=== PATIENT | male | born 1935 | race Caucasian/White ===

== ENCOUNTER 2019-04-17 00:47 | Day surgery (SDC) | payer MEDICARE, SELFPAY ==
[2019-04-17] VITALS (16 sets, daily range): BP systolic 113–185; BP diastolic 52–89; PULSE 75–97; RESP 14–22; TEMP 36.9–37.2; O2SAT 93–100; BMI 26.8
[2019-04-17 09:11] LABS: Basophils Percent Auto 0.5 % (0.2-1.2); Eosinophils Absolute Auto 0.3 K/mm3 (0-0.3); Eosinophils Percent Auto 3.1 % (0-4.4); Hematocrit 37.1 % (42.0-52.0); Immature Granulocyte Absolute 0.01 K/mm3 (0.00-0.031); Immature Granulocyte Percent A 0.1 % (0-0.5); Lymphocytes Absolute Auto 0.98 K/mm3 (0.9-3.2); Mean Corpuscular HGB Conc 29.6 g/dl (32-36); Mean Corpuscular Hemoglobin 23.8 pg (26-34); Mean Corpuscular Volume 80.1 fl (80-100); Mean Platelet Volume 12.1 fl (7.4-10.4); Monocytes Absolute Auto 1.1 K/mm3 (0.1-0.6); Monocytes Percent Auto 13.6 % (2.6-8.5); Neutrophils Absolute Auto 5.8 K/mm3 (1.3-6.7); Neutrophils Percent Auto 70.7 % (45.5-73.1); Platelet Count Result 188 k/mm3 (150-375); Red Blood Count 4.63 M/mm3 (4.6-6.20); Red Cell Distribution Width 15.5 % (11.5-14.5); White Blood Count 8.2 K/mm3 (4.5-10.0)
[2019-04-17 09:22] LABS: Blood Urea Nitrogen 20 mg/dL (9-20); Calcium 9.3 mg/dL (8.4-10.2); Carbon Dioxide 31 mmol/L (22-30); Chloride 100 mmol/L (98-107); Estimated Glomerular Filt Rate > 60; Glucose 101 mg/dL (75-110); Potassium 4.3 mmol/L (3.4-5.0); Sodium 136 mmol/L (137-145)
[2019-04-17 09:24] LABS: Platelet Estimate Adequate (Adequate); Poikilocytosis 1+ (NORMAL)
[2019-04-17 09:25] LABS: Ovalocytes 1+ (NORMAL)
--- NOTE | 2019-04-17 09:49 | WPDMODSED ---
Moderate Sedation Note-Pt Data Patient Data Diagnosis: Symptomatic aortic stenosis Present Complaint: Exertional dyspnea Procedure to be performed/Plan: Right and left heart catheterization Allergies Allergy/AdvReac Type Severity Reaction Status Date / Time pravastatin Allergy Intermediate leg cramps Verified 02/25/19 11:42 Home Medications Medication Instructions Recorded Confirmed Type aspirin 81 mg tablet,delayed 81 mg PO DAILY 02/25/19 04/17/19 History release atorvastatin 20 mg tablet 20 mg PO DAILY 02/25/19 04/17/19 History finasteride 5 mg tablet 5 mg PO DAILY 02/25/19 04/17/19 History fluorometholone 0.1 % eye 1 drop EACH EYE Q6H 02/25/19 04/17/19 History drops,suspension losartan 50 mg tablet 50 mg PO DAILY 02/25/19 04/17/19 History meloxicam 15 mg tablet 15 mg PO DAILY 02/25/19 04/17/19 History triamcinolone acetonide 0.1 % 1 applic TOPICAL BID #15 gm 02/26/19 04/17/19 Rx topical cream Current Medications: Active Medications Sodium Chloride (Normal Saline Iv) 500 mls @ 100 mls/hr IV CONT .Q5H CLARI Sedation/Anesthesia: No previous sedation/anesthesia problems (including family history). [facility] Past Medical History Medical History (Updated 02/25/19 @ 12:45 by Christophe Hope DO) Aortic stenosis Healthcare maintenance Hyperlipidemia Hypertension Nodular prostate with urinary obstruction Osteoarthritis Surgical History Surgical History (Updated 02/25/19 @ 12:13 by Tanya Gómez) History of appendectomy 1949's History of hip replacement, total Right Hip. 10-26-2018 Social History Social History (Updated 02/25/19 @ 11:45 by Tanya Gómez) Smoking status: Former smoker Mod Sed Physical Exam Physical Exam Pre Procedural Exam: Normal: Neck, Throat, Airway, Lungs, Heart Size, Heart Rate, Heart Rhythm, Neuro Exam and Extremities and Variation: Appearance (Elderly white male appears to be comfortable in bed) Hours since solid foods: 12 Hours since liquid intake: 12 Internal Medicine - PN: Obj Da Vital Signs Vital Signs: Vital Signs - 24 hr 04/17/19 09:25 Temperature 36.9 C Pulse Rate 88 Respiratory Rate 14 Blood Pressure 185/86 H Pulse Oximetry 100 Meds/Results Medications: Active Medications Generic Name Dose Route Start Last Admin Trade Name Freq PRN Reason Stop Dose Admin Sodium Chloride 500 mls @ 100 mls/hr 04/17/19 06:00 Normal Saline Iv IV CONT .Q5H CLARI Labs CBC & Chem 7: 04/17/19 09:05 04/17/19 09:05 Labs: Laboratory Results - last 24 hr 04/17/19 04/17/19 09:05 09:05 WBC 8.2 RBC 4.63 Hgb 11.0 L Hct 37.1 L MCV 80.1 MCH 23.8 L MCHC 29.6 L RDW 15.5 H Plt Count 188 MPV 12.1 H Immature Gran % (Auto) 0.1 Neut % (Auto) 70.7 Lymph % (Auto) 12.0 L Ocean % (Auto) 13.6 H Eos % (Auto) 3.1 Baso % (Auto) 0.5 Lymph # (Auto) 0.98 Ocean # (Auto) 1.1 H Eos # (Auto) 0.3 Baso # (Auto) 0.0 Abs Immat Gran (auto) 0.01 Absolute Neuts (auto) 5.8 Absolute Nucleated RBC 0.0 Nucleated RBC % 0.0 Platelet Estimate Adequate Poikilocytosis 1+ Ovalocytes 1+ Sodium 136 L Potassium 4.3 Chloride 100 Carbon Dioxide 31 H BUN 20 Creatinine 0.90 Estim Creat Clear Calc Not Reportable Estimated GFR > 60 Glucose 101 Calcium 9.3 ASA Classification/Sedation ASA Classification/Sedation ASA Class: II Emergent: No Risks: Risks, benefits and alternatives explained and patient/family accepted plan for sedation. Patient re-evaluated immediately prior to sedation.
--- NOTE | 2019-04-17 10:54 | WPDCARDPROC ---
Cardiac Cath Procedure Note Date of procedure:: 04/17/19 Performing physician:: Arden Bird MD Indication:: Elderly gentleman with well known aortic valve stenosis now symptomatic with echocardiography demonstrating severe aortic valve stenosis. Patient admitted as an outpatient for right and left heart catheterization in anticipation of AVR Brief clinical history:: as above Procedure Procedure performed:: right and left heart catheterization Sedation/Medication given:: fentanyl 50 mg Versed 2 mg case start time 10:20 a.m. case end time 10:48 a.m. [email or web address] provided by Robert Posada RN, trained observer Access site:: right femoral artery, right femoral vein Estimated blood loss:: 20 cc Procedure note:: patient was brought to the cardiac catheterization lab in the postabsorptive state the right femoral triangle was prepared in the usual fashion. Anesthesia was provided with 1% lidocaine infiltrated locally. Using the modified Seldinger technique a 6 Syriac sheath was placed into the femoral artery and a 7 Syriac sheath in femoral vein. Right heart catheterization was then carried out using a balloon tip [place]-Duc catheter to demonstrate right-sided hemodynamics and perform thermodilution cardiac output measurements. He was placed on 2 L of nasal cannula oxygen so I did not collected Willa cardiac output. Following this the [place]-Duc catheter was removed. a 6 Syriac double-lumen pigtail catheter was then advanced into the arterial sheath and up to the aortic root. A both lumens were flushed and simultaneous pressures were documented in both lumens and found to be superimposable. The straight wire was then used in the distal lumen to probe the stenotic aortic valve with the left ventricle was entered. The catheter a distal lumen was then advanced into the LV the lumen was then flushed again and simultaneous LV and aortic pressures were documented. Aortic valve area was calculated and aortic valve gradient. left ventriculography was then done in the SLAUGHTER projection after which a pullback was recorded across the stenotic aortic valve. Following this the left coronary artery was engaged and injected in multiple projections using a 5 Syriac FL4 catheter the right coronary was injected using a 5 Syriac JR4 catheter. The procedure was then terminated the patient was taken to the holding area for manual sheath removal. He had no procedural complications and left the director of cath lab with no evidence of a groin hematoma. Findings:: Hemodynamics: Right atrial pressure 9 mmHg right ventricle 50 over 5 end-diastolic 13. Pulmonary artery pressure 52 over 21 pulmonary capillary wedge pressure 23. Central aortic pressure 1 68/74 left ventricle 212/ 0, end-diastolic 15. Thermodilution cardiac output is 5.83 liters/minute giving an index of 2.82. Aortic valve area calculates to be 0.82 cm2 mean gradient 43.36 mmHg. The left ventricle is normal in size and exhibits concentric hypertrophy all segments contract well the global ejection fraction is visually estimated to be 60% there are no regional wall motion abnormalities. Left coronary artery is modestly calcified. The left main is large caliber vessel which has minimal distal plaquing from the distal left main into the proximal LAD this represents about 20% luminal stenosis and is not flow limiting in any projection. The LAD is a [id number] caliber vessel extending down to around the apex. There are mild luminal irregularities in the LAD and possibly 40% mid stenosis is identified. No flow limiting disease the circumflex is a moderate caliber artery giving rise to the marginal branches and a posterior branch the circumflex has modest luminal irregularities scattered throughout its course but no flow-limiting disease is identified right coronary artery is large caliber and dominant to the posterior circulation there are mild scattered luminal irregularities in the mid trunk of the RCA but n
[2019-04-17] MEDS: hydrALAZINE HCL 20 MG/ML VIAL 10 MG IV PUSH (12:50)
[2019-04-17] MEDS: ACETAMINOPHEN 325 MG TABLET 650 MG PO (15:46)
--- NOTE | 2019-04-17 19:47 | SUR.PHASEII ---
04/17/19:1855:IV REMOVED FROM RT FOREARM, SHEATH INTACT.NO BLEEDING OR HEMATOMA NOTED. DRESSING APPLIED.
--- NOTE | 2019-04-17 19:49 | SUR.PHASEII ---
04/17/19: 1910: PATIENT DRESSED SELF WITH MODERATE ASSIST FROM SPOUSE. RT GROIN SITE IS CLEAN AND DRY.PULSES ARE PALPATED STRONG.
--- NOTE | 2019-04-17 19:50 | SUR.PHASEII ---
04/17/19:1920:DETAILED DISCHARGE INSTRUCTIONS GIVEN TO PATIENT. PATIENT VERBALIZED AN UNDERSTANDING OF THESE INSTRUCTION.
--- NOTE | 2019-04-17 19:51 | SUR.PHASEII ---
04/17/19:1925:PATIENT DISCHARGED TO HOME VIA WHEELCHAIR.
== END 2019-04-17 19:25 | disposition home or self-care (01) ==
PROVIDERS: Specialist; Visit Provider Internal Medicine Cardiovascular Disease
PROC: 4A023N8 Measurement of Cardiac Sampling and Pressure, Bilateral, Percutaneous Approach (ICD-10-PCS; CPT 93453; principal; 2019-04-17 10:00)
DX: Z01.810 Encounter for preprocedural cardiovascular examination (principal); I35.0 Nonrheumatic aortic (valve) stenosis; I25.10 Atherosclerotic heart disease of native coronary artery without angina pectoris; R06.09 Other forms of dyspnea; I10 Essential (primary) hypertension; E78.5 Hyperlipidemia, unspecified; N40.1 Benign prostatic hyperplasia with lower urinary tract symptoms; N13.8 Other obstructive and reflux uropathy; M19.90 Unspecified osteoarthritis, unspecified site; Z79.82 Long term (current) use of aspirin; Z87.891 Personal history of nicotine dependence
CPT/HCPCS: 36415; 80048; 85025; 93460; A9270; C1887; C1894; J0360; J1644; J2250; J3010; J7040

== ENCOUNTER 2019-10-03 12:46 | Outpatient (RCR) | payer MEDICARE, SELFPAY ==
[2019-10-03 15:20] VITALS: BP 149/70; PULSE 86; RESP 16; O2SAT 99; BMI 27.6
[2019-10-03 15:29] VITALS: PULSE 86
== END 2020-01-01 23:59 | disposition home or self-care (01) ==
PROVIDERS: PCP Family Medicine; Visit Provider Internal Medicine Cardiovascular Disease
DX: Z95.2 Presence of prosthetic heart valve (principal)
CPT/HCPCS: 93798

== ENCOUNTER 2020-01-08 11:31 | Outpatient (CLI) | payer MEDICARE, SELFPAY ==
[2020-01-08 12:22] LABS: Potassium 4.6 mmol/L (3.4-5.0)
[2020-01-08 12:29] LABS: Anion Gap 8 mmol/L (8-16); Blood Urea Nitrogen 14 mg/dL (9-20); Calcium 9.1 mg/dL (8.4-10.2); Carbon Dioxide 30 mmol/L (22-30); Chloride 101 mmol/L (98-107); Estimated Glomerular Filt Rate > 60; Glucose 101 mg/dL (75-110); Sodium 139 mmol/L (137-145)
== END 2020-01-08 11:32 | disposition home or self-care (01) ==
LOC: ANHLAB 11:33
PROVIDERS: PCP Family Medicine; Visit Provider Internal Medicine Cardiovascular Disease
DX: I10 Essential (primary) hypertension (principal)
CPT/HCPCS: 36415; 80048

== ENCOUNTER 2020-02-11 08:35 | Outpatient (CLI) | payer MEDICARE, SELFPAY | END 2020-02-11 08:36 | disposition home or self-care (01) | LOC: CHSLAB 08:40 | PROVIDERS: PCP Family Medicine; Visit Provider Specialist | DX: D36.10 Benign neoplasm of peripheral nerves and autonomic nervous system, unspecified (principal) | CPT/HCPCS: 88305; 88342 ==

== ENCOUNTER 2020-05-08 11:52 | Outpatient (CLI) | payer MEDICARE, SELFPAY ==
[2020-05-08 12:12] LABS: Basophils Absolute Auto 0.1 K/mm3 (0.0-0.1); Basophils Percent Auto 0.9 % (0.2-1.2); Eosinophils Absolute Auto 0.1 K/mm3 (0-0.3); Eosinophils Percent Auto 1.6 % (0-4.4); Hematocrit 32.9 % (42.0-52.0); Hemoglobin 9.8 g/dL (14.0-18.0); Immature Granulocyte Absolute 0.01 K/mm3 (0.00-0.031); Immature Granulocyte Percent A 0.2 % (0-0.5); Immature Platelet Fraction Pct 9.2 % (0.9-11.2); Lymphocytes Absolute Auto 0.91 K/mm3 (0.9-3.2); Lymphocytes Percent Auto 15.9 % (18.3-44.2); Mean Corpuscular HGB Conc 29.8 g/dl (32-36); Mean Corpuscular Hemoglobin 21.9 pg (26-34); Mean Corpuscular Volume 73.6 fl (80-100); Mean Platelet Volume 11.7 fl (7.4-10.4); Monocytes Percent Auto 17.2 % (2.6-8.5); Neutrophils Absolute Auto 3.7 K/mm3 (1.3-6.7); Neutrophils Percent Auto 64.2 % (45.5-73.1); Platelet Count Result 166 k/mm3 (150-375); Red Blood Count 4.47 M/mm3 (4.6-6.20); Red Cell Distribution Width 16.4 % (11.5-14.5); White Blood Count 5.7 K/mm3 (4.5-10.0)
[2020-05-08 12:22] LABS: Anion Gap 5 mmol/L (8-16); Blood Urea Nitrogen 15 mg/dL (9-20); Calcium 9.2 mg/dL (8.4-10.2); Carbon Dioxide 30 mmol/L (22-30); Chloride 101 mmol/L (98-107); Estimated Glomerular Filt Rate > 60; Glucose 104 mg/dL (75-110); Potassium 4.5 mmol/L (3.4-5.0); Sodium 136 mmol/L (137-145)
[2020-05-08 12:39] LABS: Platelet Estimate Adequate (Adequate)
[2020-05-08 12:40] LABS: Ovalocytes 1+ (NORMAL); Poikilocytosis 1+ (NORMAL)
[2020-05-08 12:41] LABS: Anisocytosis 1+ (NORMAL); Macrocytosis 1+ (NORMAL)
== END 2020-05-08 11:53 | disposition home or self-care (01) ==
PROVIDERS: PCP Family Medicine; Visit Provider Internal Medicine Cardiovascular Disease
DX: I25.118 Atherosclerotic heart disease of native coronary artery with other forms of angina pectoris (principal)
CPT/HCPCS: 36415; 80048; 85025; 85055

== ENCOUNTER 2020-06-29 08:41 | Outpatient (CLI) | payer MEDICARE, SELFPAY ==
[2020-06-29 09:01] LABS: Hemoglobin A1C 5.2 % (<5.7)
[2020-06-29 09:09] LABS: Hematocrit 40.7 % (37.0-46.0); Hemoglobin 12.4 g/dL (12.4-15.3); Immature Platelet Fraction Pct 6.1 % (1.0-7.0); Mean Corpuscular HGB Conc 30.5 g/dL (32.0-36.0); Mean Corpuscular Hemoglobin 25.7 pg (27.0-31.0); Mean Corpuscular Volume 84.4 fL (78.0-102.0); Mean Platelet Volume 11.1 fl (8.7-11.0); Platelet Count Result 127 K/mm3 (150-420); Red Blood Count 4.82 M/mm3 (4.70-6.10); White Blood Count 7.3 K/mm3 (4.8-10.8)
[2020-06-29 10:05] LABS: Alanine Aminotransferase 24 U/L (16-63); Albumin Level 3.6 g/dL (3.4-5.0); Alkaline Phosphatase 92 U/L (46-116); Anion Gap 6 mmol/L (8-16); Aspartate Amino Transferase 14 U/L (15-37); Bilirubin,Total 0.4 mg/dL (0.00-1.00); Blood Urea Nitrogen 17 mg/dL (7-18); Calcium 9.2 mg/dL (8.5-10.1); Carbon Dioxide 32 mmol/L (21-32); Chloride 102 mmol/L (98-108); Estimated Glomerular Filt Rate > 60; Glucose 121 mg/dL (70-99); Osmolality Calculated 292 mOsm/kg (285-295); Potassium 4.3 mmol/L (3.5-5.1); Sodium 140 mmol/L (136-145); Total Protein 6.5 g/dL (6.4-8.2); Uric Acid 4.1 mg/dL (3.5-7.2)
== END 2020-06-29 08:42 | disposition home or self-care (01) ==
LOC: CHSLAB 08:44
PROVIDERS: PCP Family Medicine; Visit Provider Family Medicine
DX: M10.9 Gout, unspecified (principal); E11.9 Type 2 diabetes mellitus without complications
CPT/HCPCS: 36415; 80053; 83036; 84550; 85027; 85055

== ENCOUNTER 2020-07-07 13:30 | Outpatient (CLI) | payer MEDICARE, SELFPAY ==
--- NOTE | ~2020-07-07 | XR_ITS ---
XR foot RT standing 2V 07/07/2020 13:49 Indication: Right foot pain and redness Procedure: 2 views right foot Comparison: 07/07/2017 Findings: There is polyarticular osteoarthritis. There is soft tissue swelling at the metatarsophalan geal level dorsally on the lateral view. No acute fracture or traumatic malalignment. No erosive mauro ges are identified. Impression: 1: Moderate polyarticular osteoarthritis. Reviewed, dictated and finalized at location A. Impression: 1: Moderate polyarticular osteoarthritis.
== END 2020-07-07 13:31 | disposition home or self-care (01) ==
LOC: CHSIMG 13:32
PROVIDERS: PCP Family Medicine; Visit Provider Nurse Practitioner Family
DX: M79.671 Pain in right foot (principal)
CPT/HCPCS: 73620

== ENCOUNTER 2020-11-16 10:34 | Outpatient (CLI) | payer MEDICARE, SELFPAY ==
--- NOTE | ~2020-11-16 | CT_ITS ---
EXAMINATION: CT abdomen pelvis wo con DATE: 11/16/2020 10:48 INDICATION: Ventral hernia without obstruction or gangrene. TECHNIQUE: Computed tomography (CT) of the abdomen and pelvis was performed without intravenous contr ast. Automated exposure control and iterative reconstruction technique were employed. The dose-length product was 807.56 mGy-cm. COMPARISON: None. FINDINGS: The visualized portions of the lung bases demonstrate mild atelectasis. No pleural effusion . The heart size is normal. There are coronary artery calcifications. No pericardial effusion. The li steven, gallbladder, spleen, pancreas, adrenal glands, and kidneys are normal. There is no urolithiasis. There is a right inguinal hernia containing fat. There is diverticulosis of the colon without eviden ce of diverticulitis. There are no dilated loops of bowel. The appendix is not visualized. There are no pathologically enlarged lymph nodes. There is no free intraperitoneal fluid. There is a total righ t hip arthroplasty. There is severe lumbar spondylosis. Lumbar levoscoliosis is noted. IMPRESSION: 1. Right inguinal hernia containing fat. Reviewed, dictated and finalized at location A.
== END 2020-11-16 10:35 | disposition home or self-care (01) ==
LOC: CHSIMG 10:35
PROVIDERS: PCP Family Medicine; Visit Provider Family Medicine
DX: K43.9 Ventral hernia without obstruction or gangrene (principal); K40.90 Unilateral inguinal hernia, without obstruction or gangrene, not specified as recurrent
CPT/HCPCS: 74176

== ENCOUNTER 2020-12-18 07:52 | Outpatient (CLI) | payer MEDICARE, SELFPAY | END 2020-12-18 07:53 | disposition home or self-care (01) | LOC: ANHSURGERY 07:57 | PROVIDERS: PCP Family Medicine; Visit Provider Surgery | DX: K40.90 Unilateral inguinal hernia, without obstruction or gangrene, not specified as recurrent (principal); Z01.818 Encounter for other preprocedural examination | CPT/HCPCS: 36415; 86850; 86900; 86901 ==

== ENCOUNTER 2020-12-22 02:33 | Day surgery (SDC) | payer MEDICARE, SELFPAY ==
[2020-12-17 13:46] VITALS: BMI 27.5
--- NOTE | 2020-12-17 13:59 | PC.NURSE ---
Addendum entered by Ximena Amato RN 12/17/20 14:17: CONTINUE ASPIRIN [address] BOWERS'S STANDING ORDER, PT AWARE. Original Note: Report to the Outpatient Waiting Room, entrance under the green pavilion located off [facility], at time __8:00AM on date __12/22/20 . OR Time: ____10:00AM____. - You and your visitor will be asked a series of questions to screen for COVID 19 for your protection. - A mask is required within the hospital. - Only one visitor is allowed at this time. Patient visitors will be guided where to wait when not with patient. Preoperative COVID Testing Requirements: No COVID Test needed if: (proof is required; if not received patient will have Rapid Test prior to entry) - Patient has received COVID Vaccine at least 14 days prior to procedure date or - Patient has positive COVID test result within last 90 days of surgery date. COVID Test needed if above criteria is not met If not COVID vaccinated a COVID test must be conducted within 72 hours of surgery and patient is asked to isolate self from time of testing until procedure. You will go to the [facility] for your COVID testing. The [facility] is located at the corner of [address] [facility]. You will only be called if COVID results are positive and your surgeon may reschedule your elective surgery date. Patients may have clear liquids (water, carbonated beverages, clear teas, apple juice) until 3 hours prior to surgery with a maximum of 20 ounces. - No food from midnight until time of surgery - Infants may have breast milk until 4 hours before surgery, formula 6 hours prior to surgery. - Children will be allowed to drink immediately following surgery. If applicable, please bring a bottle or sippy cup to assist with drinking. Juice, water, soda, and popsicles are readily available. For infants on formula, please bring formula the day of surgery. Pacifiers are allowed. Take the following medications with a SIP of water the morning of surgery: EYE DROPS, METOPROLOL Medications to discontinue per physician ALL VITAMINS/SUPPLEMENTS Date to take last dose 12/19/20 Please no make-up, nail haitian, hairspray, perfume, deodorant, or body powder the day of surgery. No jewelry (including any body piercings) or valuables the day of surgery, leave them at home. Please take a shower or bath the night before, or the morning of, surgery with an antibacterial soap. Wear comfortable, loose fitting clothing. Children are encouraged to wear pajamas. - Jewelry must be removed prior to entering the operating room. Rings and piercings that are not removed may be cut off. - The hospital will not accept responsibility for valuables. - Please leave all valuables, including medications, at home the day of surgery. If you are going home after surgery, a licensed regional company hazmat tanker driver must drive you home. - NO public transportation without another adult. - We recommend that an adult stay with you for 24 hours following discharge. - We also recommend that you do not drive, make important decision, drink alcoholic beverages, or take any drugs that were not prescribed by your health care provider for at least 24 hours after your discharge time. For Pediatric surgeries, we recommend two adults accompany the child home (only one inside the building at this time). Follow any additional instructions given to you from your surgeon. Telephone instructions given to PATIENT___and asked if any additional questions and then verbalized understanding. Patient advised to call surgeon office or pre surgery nurse liaison [phone] if any additional questions.
[2020-12-22] VITALS (10 sets, daily range): BP systolic 112–157; BP diastolic 50–70; PULSE 56–75; RESP 12–16; TEMP 36.4–37.3; O2SAT 93–99
[2020-12-22] MEDS: ACETAMINOPHEN 500 MG TABLET 1000 MG PO (08:01)
[2020-12-22] MEDS: LACTATED RINGERS 1,000 ML 30 ML IV CONT ×2 (08:42→13:06)
[2020-12-22] MEDS: KETOROLAC 15 MG/ML VIAL (*BKC) IV PUSH (08:42)
--- NOTE | 2020-12-22 09:11 | WPDANESEPPF ---
Anes - Initial Pre Proc Eval Procedure: Operation Date: 12/22/20 10:00 Proposed Procedures p Laparoscopic Right Inguinal Hernia Repair with Mesh, Davinci Assisted - Robb Hitchcock DO Date/Time: 12/22/20 09:11 Surgeon: Robb Hitchcock DO Pre Op Diagnosis: right inguinal hernia Patient Data Age: 85 Gender: M Height: 1.78 m Weight: 86.1 kg Last Vital Signs Temp 37.3 C 12/22/20 08:37 Pulse 66 12/22/20 08:37 Resp 16 12/22/20 08:37 BP 140/68 12/22/20 08:37 Pulse Ox 99 12/22/20 08:37 Allergies Allergy/AdvReac Type Severity Reaction Status Date / Time pravastatin AdvReac Intermediate leg cramps Verified 12/22/20 07:54 Home Medications Medication Instructions Recorded Confirmed Type aspirin 81 mg tablet,delayed 81 mg PO DAILY 02/25/19 12/22/20 History release finasteride 5 mg tablet 5 mg PO DAILY 02/25/19 12/22/20 History fluorometholone 0.1 % eye 1 drop EACH EYE HS 02/25/19 12/22/20 History drops,suspension metoprolol succinate 50 mg 50 mg PO QAM 06/29/20 12/22/20 History tablet,extended release 24 hr rosuvastatin 20 mg tablet 20 mg PO DAILY 06/29/20 12/22/20 History acetaminophen [Tylenol Extra 500 mg PO Q6H PRN 12/17/20 12/22/20 History Strength] geriatric multivitamin-min 1 tablet PO DAILY 12/17/20 12/22/20 History [Multiple Vitamins 55 Plus] losartan 50 mg PO QAM 12/17/20 12/22/20 History Patient hx anesthesia problems: none Family hx anesthesia problems: none Results Review: All pre-operative results and documents have been reviewed as part of the pre-operative evaluation. [facility] Past Medical History Medical History Aortic stenosis Healthcare maintenance Hyperlipidemia Hypertension Nodular prostate with urinary obstruction Osteoarthritis Surgical History Surgical History Corneal transplant status H/O carpal tunnel repair H/O cataract extraction History of appendectomy 1949' History of hip replacement, total Right Hip. 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 Family History Family History Mother Hypertension Sister Family history of type 2 diabetes mellitus Social History Social History Smoking status: Former smoker Tobacco type: pipe Additional smoking assessment comments: SMOKED PIPE X8 YEARS, QUIT EARLY Alcohol intake: current Alcohol use details: occasional Substance use: never Living arrangements: with family Additional living arrangements comments: Spiritual care concerns: No Anes - Eval Final PreProcedure Day of Procedure 12/22/20 09:11 Patient weight: overweight Heart: regular rate and rhythm Lungs: clear to auscultation Airway: Mallampati scale class II Neurological: alert and oriented Last oral intake: >/= 8 hours ASA classification: III Emergent: no Anesthetic plan: proceed Anesthesia type and monitoring: general ETT and standard monitoring Results Review: All pre-operative results and documents have been reviewed as part of the pre-operative evaluation. Informed Consent: The patient's anesthetic plan and its attendant risks and benefits were discussed with the patient/family/POA. Questions were solicited and answers provided to the satisfaction of the patient/family/POA.
--- NOTE | 2020-12-22 09:59 | WPDHPUPDATE1 ---
History and Physical Update Update Date/Time: 12/22/20 09:59 History and Physical has been reviewed, including an updated exam of the patient. There are NO changes in the patient's condition. Risks, benefits, and alternatives have been discussed and questions answered. Patient agrees to proceed with procedure.
[2020-12-22] MEDS: ceFAZolin 2 GM/D5W 50 ML 2 GM/50 ML BAG IVPB (10:29)
[2020-12-22] MEDS: BUPIVACAINE HCL 0.5% PF 30 ML VIAL INFILTRATE (10:46)
--- NOTE | 2020-12-22 12:13 | W.PM.PROC2 ---
Procedure Note - Detailed Date of Procedure 12/22/20 Pre-op Diagnosis Right inguinal hernia Post-op Diagnosis same (Indirect right inguinal hernia) Procedure Performed Laparoscopic right inguinal hernia repair with mesh, da Diane assisted Surgeon Robb Hitchcock DO Anesthesia general and local (0.5% bupivacaine) Indications This is an 85-year-old man who presented with right groin pain and a right groin bulge. He 1st noticed a hernia in this region about 1 year ago. He recently had a CT which showed evidence of a right inguinal hernia. Discussions were made with the patient about treatment options and decision was made to proceed with robotic assisted laparoscopic right inguinal hernia repair with mesh. Findings Laparoscopic right inguinal hernia repair was performed. Upon inspecting the abdomen laparoscopically the patient did have some adhesions from his previous appendicitis and open appendectomy many years ago. I had to place a 2nd 5 mm port in the left lower quadrant and take down these adhesions using scissors. All of the adhesions appeared to be omental. Once these adhesions were taken down I was able to proceed with the robotic assisted portion. A robotic transabdominal preperitoneal approach was utilized. Patient was found to have an indirect right inguinal hernia. Once the preperitoneal pocket was created and the hernia sac was reduced, the hernia was repaired using a large right Bard 3DMax mid mesh. This was secured in place using 3-0 Vicryl sutures at Enrico's ligament, the superior medial edge of the mesh, and the superior lateral edge. The left side was inspected and no evidence of a left inguinal hernia was seen. No specimens were obtained for pathology. Description of Procedure Procedure as well as risks, benefits, and alternatives were discussed with the patient. Written consent was obtained and placed in chart prior to procedure. Patient was brought back to surgical suite. He was placed supine on operating table. Time-out was done to confirm patient and procedure. He was then intubated by Anesthesia Department. His abdomen was prepped and draped in sterile fashion using chlorhexidine prep. 0.5% bupivacaine with epinephrine was infiltrated at each location for incision. An 8 mm incision was made in the left lateral abdomen, and a 5 mm Optiview trocar was advanced through the abdominal layers under direct visualization. Once inside the abdominal cavity, carbon dioxide insufflation was used to create a pneumoperitoneum. A camera was inserted and the abdominal cavity was inspected. The patient was placed in slight Trendelenburg position. An 8 millimeter incision was made on the right lateral abdomen and an 8 millimeter trocar was inserted under direct visualization. Another 8 millimeter incision was made just superior to the umbilicus and an 8 millimeter trocar was inserted under direct visualization. The 5 mm port was then removed and this was replaced with another 8 mm robotic port. The robotic arms were brought up to the patient's bedside and secured to the ports. The camera and instruments were inserted. I then moved over to the robotic console and took control of the camera and instruments. After careful inspection of the abdominal cavity, I began scoring the peritoneum along the right lower quadrant using scissors with electrocautery. The preperitoneal plane was entered and this was carefully dissected caudally along the inferior epigastric vessels. Careful dissection with scissors with electrocautery and blunt dissection was used to continue this dissection. I dissected far enough laterally to allow for mesh placement, and also dissected medially to identify the pubic arch and Enrico's ligament. The hernia sac was identified and carefully dissected posteriorly. The cord contents were also identified and the peritoneum was carefully dissected far enough posteriorly to allow for mesh placement. Once an adequate pocket was
== END 2020-12-22 15:23 | disposition home or self-care (01) ==
PROVIDERS: PCP Family Medicine; Visit Provider Surgery
PROC: 8E0Y4CZ Robotic Assisted Procedure of Lower Extremity, Percutaneous Endoscopic Approach (ICD-10-PCS; CPT 49650; principal; 2020-12-22 10:00)
DX: K40.90 Unilateral inguinal hernia, without obstruction or gangrene, not specified as recurrent (principal); I10 Essential (primary) hypertension; E78.5 Hyperlipidemia, unspecified; I35.0 Nonrheumatic aortic (valve) stenosis; N40.3 Nodular prostate with lower urinary tract symptoms; N13.8 Other obstructive and reflux uropathy; Z79.4 Long term (current) use of insulin; Z87.891 Personal history of nicotine dependence; Z79.82 Long term (current) use of aspirin
CPT/HCPCS: 49650; S2900; A9270; C1781; J0690; J1100; J1885; J2405; J2704; J2710; J3010; J7030; J7120

== ENCOUNTER 2021-02-02 10:01 | Outpatient (CLI) | payer MEDICARE, SELFPAY | END 2021-02-02 10:02 | disposition home or self-care (01) | LOC: CHSLAB 10:03 | PROVIDERS: PCP Family Medicine; Visit Provider Specialist | DX: C44.319 Basal cell carcinoma of skin of other parts of face (principal) | CPT/HCPCS: 88305 ==

== ENCOUNTER 2021-07-20 16:35 | Outpatient (CLI) | payer MEDICARE, SELFPAY | END 2021-07-20 16:36 | disposition home or self-care (01) | LOC: CHSLAB 16:47 | PROVIDERS: PCP Family Medicine; Visit Provider Specialist | DX: C44.319 Basal cell carcinoma of skin of other parts of face (principal) | CPT/HCPCS: 88305 ==

== ENCOUNTER 2021-08-31 14:06 | Outpatient (CLI) | payer MEDICARE, SELFPAY | END 2021-08-31 14:07 | disposition home or self-care (01) | LOC: CHSLAB 14:12 | PROVIDERS: PCP Family Medicine; Visit Provider Specialist | DX: C44.321 Squamous cell carcinoma of skin of nose (principal) | CPT/HCPCS: 88305 ==

== ENCOUNTER 2022-04-01 07:30 | Outpatient (CLI) | payer MEDICARE, SELFPAY ==
[2022-04-01 07:42] LABS: Hematocrit 41.2 % (37.0-46.0); Hemoglobin 13.5 g/dL (12.4-15.3); Mean Corpuscular HGB Conc 32.8 g/dL (32.0-36.0); Mean Corpuscular Hemoglobin 30.3 pg (27.0-31.0); Mean Corpuscular Volume 92.6 fL (78.0-102.0); Mean Platelet Volume 11.1 fl (8.7-11.0); Platelet Count Result 121 K/mm3 (150-420); Red Blood Count 4.45 M/mm3 (4.70-6.10); White Blood Count 5.5 K/mm3 (4.8-10.8)
[2022-04-01 08:37] LABS: Alanine Aminotransferase 31 U/L (16-63); Albumin Level 3.7 g/dL (3.4-5.0); Alkaline Phosphatase 87 U/L (46-116); Anion Gap 3 mmol/L (8-16); Aspartate Amino Transferase 23 U/L (15-37); Bilirubin,Total 0.5 mg/dL (0.00-1.00); Blood Urea Nitrogen 18 mg/dL (7-18); Calcium 8.9 mg/dL (8.5-10.1); Carbon Dioxide 33 mmol/L (21-32); Chloride 101 mmol/L (98-108); Cholesterol 195 mg/dL (0-200); Estimated Glomerular Filt Rate > 60; Glucose 103 mg/dL (70-99); HDL Direct 73 mg/dL (40-60); LDL Cholesterol Calculated 91 mg/dL (<130); Osmolality Calculated 285 mOsm/kg (285-295); Potassium 4.5 mmol/L (3.5-5.1); Sodium 137 mmol/L (136-145); Total Protein 6.6 g/dL (6.4-8.2); Triglycerides 153 mg/dL (0-150); Uric Acid 4.1 mg/dL (3.5-7.2)
[2022-04-01 08:40] LABS: Thyroid Stimulating Hormone Reflex 3.02 u/IU/mL (0.36-3.74)
== END 2022-04-01 07:31 | disposition home or self-care (01) ==
LOC: CHSLAB 07:31
PROVIDERS: PCP Family Medicine; Visit Provider Family Medicine
DX: M10.9 Gout, unspecified (principal); E11.9 Type 2 diabetes mellitus without complications; I10 Essential (primary) hypertension
CPT/HCPCS: 36415; 80053; 80061; 84443; 84550; 85027; 85055

== ENCOUNTER 2022-09-13 08:41 | Outpatient (CLI) | payer MEDICARE, SELFPAY ==
--- NOTE | ~2022-09-13 | XR_ITS ---
Right Knee Technique: AP, lateral, and sunrise views were obtained. Clinical History: Pain Findings: No fracture or dislocation is seen. Total knee arthroplasty hardware in place. No hardware complication is evident. Soft tissues are unremarkable. No joint effusion is seen. Impression: No acute abnormality. Status post total right knee arthroplasty. Reviewed, dictated and finalized at [facility]. Impression: No acute abnormality. Status post total right knee arthroplasty.
== END 2022-09-13 08:42 | disposition home or self-care (01) ==
PROVIDERS: PCP Family Medicine; Visit Provider Orthopaedic Surgery
DX: M25.561 Pain in right knee (principal); Z96.651 Presence of right artificial knee joint
CPT/HCPCS: 73562

== ENCOUNTER 2022-09-16 11:30 | Outpatient (RCR) | payer MEDICARE, SELFPAY ==
--- NOTE | 2022-09-16 09:21 | OPREHPOC ---
Outpatient Therapy Plan of Care This is a Multidisciplinary Plan of Care that may contain components documented by all disciplines (PT, OT, and ST.) PT Problem 1 PT Problem #1 Knowledge Deficit PT Goal 1 Goal Patient to demonstrate independence with HEP Target Visit 6 PT Problem 2 PT Problem #2 Pain PT Goal 1 Goal Patient to report highest pain at 2/10 with daily activities Target Visit 12 PT Problem 3 PT Problem #3 Impaired Range of Motion PT Goal 1 Goal Patient to demonstrate 130deg of R knee ROM for improved stair navigation Target Visit 12 PT Problem 4 PT Problem #4 Impaired Strength PT Goal 1 Goal Patient to demonstrate 5/5 strength of R LE to improve ability to lift for house hold tasks Target Visit 12 PT Problem 5 PT Problem #5 Impaired Functional Mobil PT Goal 1 Goal 1. Patient to score 20% improvement with LEFS 2. Patient to demonstrate ability to stand up from chair with no increase in pain 3. Patient to report ability to complete yard work at PLOF. Target Visit 12
--- NOTE | 2022-09-16 09:21 | PTOPEVAL1 ---
Assessment and note entered by Nanci Haskins DPT Evaluation Information Assessment Status Evaluation Diagnosis R knee pain Onset 09/13/22 Subjective Information Patient reports R knee pain for the last ~3 weeks. He reports he got an injection 2 days ago and pain has decreased. He reports pain is in the medial thigh and inside of knee. He reports history of R knee replacement. He reports MD stated he has bursitis. He reports pain is increased with getting up from chair, lifting the R leg and navigating stairs. He reports that he does occasionally ice his knee. Patient reports he is retired but does yard and garden work. Reported Pain Level Pain Score 4: Self Report Assessment PT Clinical Summary Patient is a 87 year old male who presents to PT with R knee pain consistent with bursitis at the pes anserine. Patient demonstrates decreased R knee flexion, decreased R LE strength and tenderness at the pes anerine limiting hsi ability to complete yard work, stand up from chair and navigate stairs. Patient would benefit from skilled PT to address impairments and return to PLOF. Plan of Care Interventions Electrical Stimulation,Gait Training,Hot Pack/Cold Pack,Manual Therapy,Neuro Re-education,Patient/ Caregiver Educati,Therapeutic Activities, Therapeutic Exercise PT Services Indicated Yes Treatment Frequency and 2x weekly for 12 visits Duration These treatments will address the objective and functional deficits as defined above. The patient will be advanced safely and appropriately in order for the patient to progress towards his/her prior level of function. Additional exercises will be introduced and as well as a comprehensive home exercise program upon discharge, if needed, ?to ensure carryover of functional gains achieved in the clinic. This treatment plan has been reviewed and agreement upon by the patient.
--- NOTE | 2022-10-19 08:12 | OPREHPOC ---
Outpatient Therapy Plan of Care This is a Multidisciplinary Plan of Care that may contain components documented by all disciplines (PT, OT, and ST.) PT Problem 1 PT Problem #1 Knowledge Deficit PT Goal 1 Goal Patient to demonstrate independence with HEP Target Visit 6 Progress Partially Met Comment continue to progress PT Problem 2 PT Problem #2 Pain PT Goal 1 Goal Patient to report highest pain at 2/10 with daily activities Target Visit 12 Progress Met Comment goal met PT Problem 3 PT Problem #3 Impaired Range of Motion PT Goal 1 Goal Patient to demonstrate 130deg of R knee ROM for improved stair navigation Target Visit 12 Progress Partially Met Comment continue to address PT Problem 4 PT Problem #4 Impaired Strength PT Goal 1 Goal Patient to demonstrate 5/5 strength of R LE to improve ability to lift for house hold tasks Target Visit 12 Progress Partially Met Comment continue to address PT Problem 5 PT Problem #5 Impaired Functional Mobil PT Goal 1 Goal 1. Patient to score 20% improvement with LEFS 2. Patient to demonstrate ability to stand up from chair with no increase in pain 3. Patient to report ability to complete yard work at [facility]. Target Visit 12 Progress Partially Met Comment continue to address
--- NOTE | 2022-10-19 08:12 | PTOPPROGNS ---
Assessment and note entered by JT File, PT Evaluation Information Assessment Status Progress Diagnosis R knee pain Onset 09/13/22 Subjective Information Patient reports slight pain in the R knee, but notes that it has been decreasing in intensity since starting PT. He notes that the pain has not been higher than a 2/10 in the past week. He notes that performing his exercises has become easier over time with less pain. He has been consistent with performing HEP. Assessment PT Clinical Summary Mr. Weiss has attended 10 visits of skilled PT to address R knee pain, making progress towards goals . He demonstrates slightly improved ROM and strength at the R knee and hip this date. Patient also improved R and L hamstring lengths, but continues to demonstrate tightness. Patient reports a lower pain level with daily activities since starting PT. He continues to be tender to palpation along R adductors and hamstrings. Plan to continue skilled therapy for remaining visits on POC to acheive remaining goals, with consideration of discharging modalities. Plan of Care Interventions Electrical Stimulation,Gait Training,Hot Pack/Cold Pack,Neuro Re-education,Patient/Caregiver Educati ,Therapeutic Activities,Therapeutic Exercise PT Services Indicated Yes Treatment Frequency and continue 2x weekly for remaining 2 visits Duration These treatments will address the objective and functional deficits as defined above. The patient will be advanced safely and appropriately in order for the patient to progress towards his/her prior level of function. Additional exercises will be introduced and as well as a comprehensive home exercise program upon discharge, if needed, ?to ensure carryover of functional gains achieved in the clinic. This treatment plan has been reviewed and agreement upon by the patient.
--- NOTE | 2022-10-24 07:46 | PTOPDC ---
Assessment and note entered by Nanci Haskins DPT Evaluation Information Assessment Status Evaluation Diagnosis R knee pain Onset 09/13/22 Subjective Information Patient reports his knee and hamstring have decreased pain. He reports he has been able to lift his R leg into bed, get up from a chair and navigate stairs at [facility]. He reports independence with HEP Reported Pain Level Pain Score 1: Self Report Assessment PT Clinical Summary Patient was seen for 12 visits of skilled PT with all goals met besides LE strength. Patient demonstrates decreased pain, increased B LE ROM and increased strength. Patient reports improved ability to lift leg into bed, navigate stairs and stand up from a chair. Patient is independent with HEP and is appropriate for DC at this time. Plan of Care PT Services Indicated No
--- NOTE | 2022-10-24 07:46 | OPREHPOC ---
Outpatient Therapy Plan of Care This is a Multidisciplinary Plan of Care that may contain components documented by all disciplines (PT, OT, and ST.) PT Problem 1 PT Problem #1 Knowledge Deficit PT Goal 1 Goal Patient to demonstrate independence with HEP Target Visit 6 Progress Met Comment continue to progress PT Problem 2 PT Problem #2 Pain PT Goal 1 Goal Patient to report highest pain at 2/10 with daily activities Target Visit 12 Progress Met Comment goal met PT Problem 3 PT Problem #3 Impaired Range of Motion PT Goal 1 Goal Patient to demonstrate 130deg of R knee ROM for improved stair navigation Target Visit 12 Progress Met Comment continue to address PT Problem 4 PT Problem #4 Impaired Strength PT Goal 1 Goal Patient to demonstrate 5/5 strength of R LE to improve ability to lift for house hold tasks Target Visit 12 Progress Not Met Comment good progress PT Problem 5 PT Problem #5 Impaired Functional Mobil PT Goal 1 Goal 1. Patient to score 20% improvement with LEFS 2. Patient to demonstrate ability to stand up from chair with no increase in pain 3. Patient to report ability to complete yard work at [facility]. Target Visit 12 Progress Met Comment MET
== END 2022-10-24 09:50 | disposition home or self-care (01) ==
LOC: CHSPT 11:30
PROVIDERS: Visit Provider Orthopaedic Surgery
DX: M70.51 Other bursitis of knee, right knee (principal); M70.50 Other bursitis of knee, unspecified knee
CPT/HCPCS: 97014; 97110; 97140; 97161; G0283

== ENCOUNTER 2023-02-02 11:30 | Outpatient (CLI) | payer MEDICARE, SELFPAY ==
[2023-02-02 12:16] LABS: Anion Gap 9 mmol/L (8-16); Blood Urea Nitrogen 19 mg/dL (9-20); Calcium 9.2 mg/dL (8.4-10.2); Carbon Dioxide 20 mmol/L (22-30); Chloride 104 mmol/L (98-107); Estimated Glomerular Filt Rate > 60; Glucose 104 mg/dL (65-110); Potassium 4.7 mmol/L (3.4-5.0); Sodium 133 mmol/L (137-145)
== END 2023-02-02 11:31 | disposition home or self-care (01) ==
PROVIDERS: PCP Family Medicine; Visit Provider Internal Medicine Cardiovascular Disease
DX: I50.31 Acute diastolic (congestive) heart failure (principal); R06.09 Other forms of dyspnea
CPT/HCPCS: 36415; 80048

== ENCOUNTER 2023-03-16 01:43 | Day surgery (SDC) | payer MEDICARE, SELFPAY ==
[2023-03-15 16:10] VITALS: BMI 26.5
[2023-03-15 16:36] VITALS: BMI 26.5
[2023-03-16] VITALS (19 sets, daily range): BP systolic 115–177; BP diastolic 47–87; PULSE 69–83; RESP 18–23; TEMP 37.1; O2SAT 96–100; BMI 27.3
[2023-03-16 08:55] LABS: Basophils Percent Auto 0.4 % (0.2-1.2); Eosinophils Absolute Auto 0.3 K/mm3 (0-0.3); Eosinophils Percent Auto 3.1 % (0-4.4); Hematocrit 39.2 % (42.0-52.0); Hemoglobin 12.6 g/dL (14.0-18.0); Immature Granulocyte Absolute 0.03 K/mm3 (0.00-0.031); Immature Granulocyte Percent A 0.4 % (0-0.5); Lymphocytes Absolute Auto 1.19 K/mm3 (0.9-3.2); Lymphocytes Percent Auto 14.3 % (18.3-44.2); Mean Corpuscular HGB Conc 32.1 g/dl (32-36); Mean Corpuscular Hemoglobin 29.8 pg (26-34); Mean Corpuscular Volume 92.7 fl (80-100); Mean Platelet Volume 11.2 fl (7.4-10.4); Monocytes Absolute Auto 1.2 K/mm3 (0.1-0.6); Monocytes Percent Auto 13.9 % (2.6-8.5); Neutrophils Absolute Auto 5.7 K/mm3 (1.3-6.7); Neutrophils Percent Auto 67.9 % (45.5-73.1); Platelet Count Result 151 k/mm3 (150-375); Red Blood Count 4.23 M/mm3 (4.6-6.20); Red Cell Distribution Width 12.6 % (11.5-14.5); White Blood Count 8.3 K/mm3 (4.5-10.0)
[2023-03-16 09:03] LABS: INR 1.1; Prothrombin Time 14.1 Seconds (11.1-14.7)
[2023-03-16 09:08] LABS: Anion Gap 9 mmol/L (8-16); Blood Urea Nitrogen 15 mg/dL (9-20); Calcium 9.5 mg/dL (8.4-10.2); Carbon Dioxide 24 mmol/L (22-30); Chloride 102 mmol/L (98-107); Estimated CRCL calculation 53 ml/min; Estimated Glomerular Filt Rate > 60; Glucose 104 mg/dL (65-110); Potassium 4.2 mmol/L (3.4-5.0); Sodium 135 mmol/L (137-145)
--- NOTE | 2023-03-16 10:58 | WPDHPUPDATE1 ---
History and Physical Update Update Date/Time: 03/16/23 10:58 History and Physical has been reviewed, including an updated exam of the patient. There are NO changes in the patient's condition. Risks, benefits, and alternatives have been discussed and questions answered. Patient agrees to proceed with procedure.
--- NOTE | 2023-03-16 10:58 | WPDMODSED ---
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 He was then referred for CT coronary angiogram which suggested severe distal stenosis of the LAD prompting referral for coronary angiography for delineation of his coronary anatomy. Impression: 1.Abnormal stress tests and CT coronary angiogram with progressive exertional dyspnea fatigue concerning for anginal equivalent 2. chronic CHF 3. hypertension 4. history of TAVR for severe aortic stenosis 5. hyperlipidemia plan of care: Coronary angiography for delineation of coronary anatomy. Recommendation to follow. Procedure to be performed/Plan: left heart catheterization with selective left and right coronary angiography with left ventriculography and hemodynamics and possible percutaneous intervention and stent implantation Allergies Allergy/AdvReac Type Severity Reaction Status Date / Time pravastatin AdvReac Intermediate leg cramps Verified 03/16/23 08:52 Home Medications Medication Instructions Recorded Confirmed Type aspirin 81 mg tablet,delayed 81 mg PO DAILY 02/25/19 03/15/23 History release (Adult Low Dose Aspirin) metoprolol succinate 50 mg 50 mg PO QAM 06/29/20 03/16/23 History tablet,extended release 24 hr (Toprol XL) rosuvastatin 20 mg tablet 20 mg PO DAILY 06/29/20 03/15/23 History geriatric multivitamin-min 1 tablet PO DAILY 12/17/20 03/15/23 History losartan 50 mg tablet 50 mg PO QAM 12/17/20 03/16/23 History prednisolone acetate 1 % eye 1 drp EACH EYE QHS 03/31/22 03/15/23 History drops,suspension acetaminophen 500 mg tablet 1,000 mg PO Q6H PRN Pain 03/15/23 03/15/23 History furosemide 20 mg tablet 20 mg PO DAILY 03/15/23 03/15/23 History isosorbide mononitrate 30 mg 30 mg PO DAILY 03/15/23 03/15/23 History tablet,extended release 24 hr Current Medications: Active Medications Sodium Chloride (Normal Saline Iv) 500 mls @ 100 mls/hr IV CONT .Q5H CLARI Sedation/Anesthesia: No previous sedation/anesthesia problems (including family history). [facility] Past Medical History Medical History Aortic stenosis Healthcare maintenance Hyperlipidemia Hypertension Nodular prostate with urinary obstruction Osteoarthritis Surgical History Surgical History Corneal transplant status H/O carpal tunnel repair H/O cataract extraction History of appendectomy History of hernia repair RI hernia repair with mesh davinci assisted 12/22/20 History of hip replacement, total Right Hip. 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
--- NOTE | 2023-03-16 11:46 | W.PM.PROC2 ---
Procedure Note - Detailed Date of Procedure 03/16/23 Pre-op Diagnosis abnormal cta and carpenter, CAD Post-op Diagnosis Same Procedure Performed left heart catheterization with selective left and right coronary angiography Surgeon Francis Marrero MD Anesthesia Local and Other ( moderate sedation) Indications abnormal stress test, CAD, fatigue and exertional dyspnea Findings CORONARY ANGIOGRAPHY: The LEFT MAIN arose from the left coronary cusp and was without angiographically significant disease. The left main then bifurcated into the left anterior descending artery and circumflex coronary artery. LEFT ANTERIOR DESCENDING ARTERY: Moderate to large caliber vessel extending to and wrapped around the LV apex with heavy calcification proximally with 20-30% proximal LAD stenosis, mid 20-30% stenosis and mild luminal irregularities throughout the extent. First diagonal branch was a moderate caliber vessel with a 50-60% proximal stenosis. CIRCUMFLEX CORONARY ARTERY: Moderate caliber nondominant vessel with proximal 50% stenosis followed by 20-30% mid circumflex stenosis after bifurcation of a moderate-sized 1st obtuse marginal branch. First obtuse marginal branch heart rate mild luminal irregularities as did the 2nd obtuse marginal branch. Luminal irregularities were noted throughout the extent of the circumflex distribution. RIGHT CORONARY ARTERY: Moderate caliber dominant vessel arising the right coronary cusp proximal to mid 30-40% stenosis will irregularities noted throughout its extent. LEFT VENTRICULOGRAPHY AND HEMODYNAMICS: Deferred in the interest of preserving prior TAVR and acceptable noninvasive hemodynamic assessment. Aortic valve: N/A Mitral valve: N/A Left ventricular pressure: not performed in the interest of preservation of the TAVR and acceptable noninvasive hemodynamic assessment Central aortic pressure: 145/82 mm Hg Complications: None Conclusions: 1. Mild nonobstructive coronary artery disease with proximal LAD 20-30% stenosis,, 20-30% mid vessel stenosis, 50-60% proximal 1st diagonal branch stenosis. Proximal 50% circumflex stenosis, mid 30-40% RCA stenosis. 2. Systemic hypertension 3. Status post TAVR 4. False positive CT coronary angiography which suggested severe distal LAD stenosis and noninvasive ischemic evaluation which suggested fixed inferolateral defect without ischemia Recommendations: 1. Continue aggressive secondary risk factor modification and optimization medical therapy 2. Continue close clinical observation. No clear explanation for patient's progressive exertional dyspnea coronary anatomy or by TAVR hemodynamics at this time. 3. Complete post cardiac catheterization protocol Thank you very much the privilege of participating in the care this very pleasant patient. Should you have any further questions or concerns please do not hesitate to contact me. Description of Procedure BRIEF HISTORY OF PRESENT ILLNESS: Patient is a pleasant 87-year-old male with a history of nonobstructive CAD, history of CHF, hypertension, hyperlipidemia, status post 26 mm TAVR 2019 with complaint of progressive dyspnea, fatigue and declining activity tolerance who underwent noninvasive ischemic evaluation which revealed a fixed inferolateral defect without ischemia yet further evaluation with CT coronary angiogram indicated severe distal LAD stenosis prompting referral for base of angiography for delineation of his coronary anatomy. PROCEDURES PERFORMED: 1. Left heart catheterization 2. Selective left and right coronary angiography 3. Left ventriculography and hemodynamics 4. Moderate/conscious sedation administration CATHETERS UTILIZED: Left coronary system- 5 [place] JL4 catheter Right coronary system- 5 [place] JR4 catheter Left ventriculography and hemodynamics- 5 [place] angled pigtail catheter PROCEDURE IN DETAIL: After verbal and written informed consent was obtained the patient, r
== END 2023-03-16 17:45 | disposition home or self-care (01) ==
PROVIDERS: PCP Family Medicine; Visit Provider Internal Medicine Cardiovascular Disease
PROC: 4A023N7 Measurement of Cardiac Sampling and Pressure, Left Heart, Percutaneous Approach (ICD-10-PCS; CPT 93452; principal; 2023-03-16 10:00)
DX: I25.10 Atherosclerotic heart disease of native coronary artery without angina pectoris (principal); R94.39 Abnormal result of other cardiovascular function study; R06.09 Other forms of dyspnea; E78.5 Hyperlipidemia, unspecified; I11.0 Hypertensive heart disease with heart failure; I50.9 Heart failure, unspecified; Z95.4 Presence of other heart-valve replacement; Z79.82 Long term (current) use of aspirin; N40.3 Nodular prostate with lower urinary tract symptoms; N13.8 Other obstructive and reflux uropathy; Z87.891 Personal history of nicotine dependence
CPT/HCPCS: 36415; 80048; 85025; 85610; 93458; C1769; C1887; C1894; J1644; J2250; J3010; J7040